=== PATIENT | male | born 2005 | race Caucasian/White ===

== ENCOUNTER 2024-06-30 15:23 | Emergency (ER) | payer OTHER, SELFPAY ==
[2024-06-30 15:25] VITALS: BP 148/92
[2024-06-30 15:35] VITALS: BMI 32.8
--- NOTE | 2024-06-30 16:22 | ED.GENMED ---
History of Present Illness
General
Chief Complaint: Skin Surface Trauma
Source: patient
Exam Limitations: none
Time Seen by Provider: 06/30/24 15:36
Nursing documentation reviewed up to this point in time: agreed with
History of Present Illness
History of Present Illness:
18-year-old male
No medical problems presents for laceration to bridge of his nose from accidentally walking into a steel beam earlier today. He had no loss of consciousness. No epistaxis. He has no facial pain or tenderness or swelling. Patient has a laceration
that is closed if he is not moving his eyebrows but once he lifts his eyebrows it opens up. It is not bleeding currently. Tetanus is unknown
Past History
Past History
ED Past Medical History: None
ED Past Surgical History: None
Social History
Tobacco: Non-smoker
Alcohol: None
Drug: None
Personal: Single
Living: with family
Employment: Employed
Review of Systems
Review of Systems
Allergies reviewed?: Yes
All Other Systems: Not applicable
Phy Exam
Physical Exam
Physical Exam:
GENERAL: Alert , in no apparent distress
HEAD: NCAT
face: top of nose between eyebrows laceraion linear 1.5 cm opens when he furrows brow
nontender
NECK: no midline tenderness, active ROM intact, no paraspinal muscle tenderness;
EYE: pupils equal and reactive, EOMs intact.
ENT: o/p clr, mmm. no hemotympanum
no nasal tenderness, no black eyes or sts
NEUROLOGICAL: Alert and oriented, no focal neuro deficits, CN intact, 5/5 strength, sensation intact
SKIN: Warm and dry, laceration
MUSCULOSKELETAL: No edema, well perfused.
PSYCH: Normal and appropriate interaction.
Course
Orders/Labs/Results
Orders:
Orders
06/30/24 16:21
Tetanus/Diphth/Acelpertussis [Adacel] 0.5 ml IM .ONCE ONE
Vital Signs
Initial and Last Documented VS:
Initial Vital Signs
Temp Pulse Resp BP Pulse Ox
36.7 C 70 16 148/92 99
06/30/24 15:25 06/30/24 15:25 06/30/24 15:25 06/30/24 15:25 06/30/24 15:25
Last Documented Vital Signs
Temp Pulse Resp BP Pulse Ox
36.7 C 70 16 148/92 96
06/30/24 15:25 06/30/24 15:25 06/30/24 15:25 06/30/24 15:25 06/30/24 15:36
Procedures
Laceration Closure
Nose:
Status of Wound: clean
Size of Wound in cm: 1.5
Description of Wound Edges: sharp
Preparation: cleaned with saline
Anesthesia: 1% Lidocaine with epi
Type of Closure: single layer closure
Skin Closure Material: 6-0 nylon
Number of sutures: 3
MDM/Problems Addressed
Differential Diagnosis Includes:
laceration, contusion
MDM/Problems Addressed:
laceration to nose from striking against steel beam
opens up with burrowing brow
no sts, no bony tenderness
wound reparied with sutures
tetanus given
*Critical Care Note
Total Time (30-74mins, 75-104mins- exclusive of procedures): Not Applicable
ED Attending Note
-
Portions of this chart may have been created with voice recognition software.� Occasional wrong word or��sound alike� substitutions may have occurred due to the inherent limitations of voice recognition software.
Discharge Plan
Departure
Patient Disposition: Home (Routine Discharge)
Date of Disposition: 06/30/24
Time of Disposition: 16:32
Patient with high blood pressure during this ER visit?: No
Condition: Fair
Covid-19: Not Applicable
Discharge Problem:
Laceration of face
Instructions: Laceration Repair With Stitches (DC)
Prescriptions:
No Action
ciprofloxacin HCl 1 DROPPERETT dropperette
1 dropperett otic (ear) Q12 Qty: 1 0RF
prednisone 10 MG tablet
10 mg PO .TAPER Qty: 30 0RF
Rx Instructions:
Take 40mg daily x3days, 30mg daily x3days,
20mg daily x3days, 10mg daily x3days.
Referrals:
NONE,* [Family Provider] -
Activity Restrictions/Additional Instructions:
KEEP THE WOUND CLEAN AND DRY FOR 24 HOURS
AFTER THAT YOU CAN GET IT WET IN THE BATH/SHOWER ONCE A DAY AND MAKE SURE IT IS CLEAN AND THERE IS NO DRIED BLOOD ON THE STITCHES
APPLY NEOSPORIN And you can cover if in the sun
THE STITCHES NEED TO BE REMOVED IN ABOUT 7 DAYS, SEE YOUR DOCTOR FOR THIS.
THE LAST DAY BEFORE STITCHES OUT, NO OINTMENT, LEAVE OPEN TO AIR
WATCH FOR SIGNS OF INFECTION AND RETURN NEEDED FOR PAIN, SWELLING, REDNESS, DRAINAGE, BLEEDING.
MOTRIN NEEDED FOR PAIN.
Interventions
Interventions:
*Risk Screen - Suicide Last Done: 06/30/24 15:25
*General Assessment Last Done: 06/30/24 15:25
*Neglect/Abuse Screening Last Done: 06/30/24 15:36
*ED- Fall Risk Assessment Last Done: 06/30/24 15:36
*ED COVID-19 Vaccine History Last Done: 06/30/24 15:25
*Nursing Disposition Last Done: 06/30/24 16:40
ED-Skin Assessment Last Done: 06/30/24 15:36
Discharge Date and Time
Discharge Date/Time: 06/30/24 16:41
Print Language: ICELANDIC
[2024-06-30] MEDS: ADACEL 0.5 ML IM (16:28)
== END 2024-06-30 16:41 | disposition home or self-care (01) ==
LOC: EMR 15:23
PROVIDERS: EMERGENCY PHYSICIAN Emergency Medicine
DX: S01.81XA Laceration without foreign body of other part of head, initial encounter (principal); W22.09XA Striking against other stationary object, initial encounter; Z23 Encounter for immunization
CPT/HCPCS: 99282; 12011; 90471; 90715

== ENCOUNTER 2024-07-10 16:22 | Emergency (ER) | payer OTHER, SELFPAY ==
[2024-07-10 16:27] VITALS: BP 130/85
--- NOTE | 2024-07-10 17:44 | ED.GENMED ---
History of Present Illness
General
Chief Complaint: Wound Check/Suture Removal
Source: patient and records
Exam Limitations: none
Time Seen by Provider: 07/10/24 17:36
History of Present Illness
History of Present Illness:
18yoM here for suture removal. Patient was seen in the ED on 06/30/2024 for a facial laceration. Three sutures were placed at that time. He otherwise denies any concerns and states his wound is healing well. Tdap updated during prior visit.
Past History
Past History
ED Past Medical History: None
ED Past Surgical History: None
Social History
Tobacco: Non-smoker
Alcohol: None
Drug: None
Personal: Single
Living: with family
Employment: Employed
Phy Exam
General Physical Exam
General Presentation: well appearing and no apparent distress
General age: appears stated age
General Skin: warm and dry
General Habitus: normal
General Mental: alert
ENT Exam
ENT Exam: normocephalic and other (3 intact sutures in between eyebrows. Laceration well healed without signs of infection.)
Neurological Exam
Neurological Exam: alert
Skin Exam
Skin Exam: normal color and warm/dry
Psychiatric Exam
Psychiatric Exam: normal mood/affect
Course
Vital Signs
Initial and Last Documented VS:
Initial Vital Signs
Temp Pulse Resp Pulse Ox
98.7 F 63 18 98
07/10/24 16:25 07/10/24 16:25 07/10/24 16:25 07/10/24 16:25
Last Documented Vital Signs
Temp Pulse Resp BP Pulse Ox
98.7 F 63 18 130/85 98
07/10/24 16:25 07/10/24 16:25 07/10/24 16:25 07/10/24 16:27 07/10/24 16:25
MDM/Problems Addressed
Differential Diagnosis Includes:
18yoM here for suture removal. No signs of infection on exam and wound is well healed. Sutures removed with suture removal kit without difficulty. Small amount of bleed afterwards which resolved with direct pressure. Patient discharged in stable
condition.
*Critical Care Note
Total Time (30-74mins, 75-104mins- exclusive of procedures): Not Applicable
ED Attending Note
-
Portions of this chart may have been created with voice recognition software.� Occasional wrong word or��sound alike� substitutions may have occurred due to the inherent limitations of voice recognition software.
Discharge Plan
Departure
Patient Disposition: Home (Routine Discharge)
Date of Disposition: 07/10/24
Time of Disposition: 17:45
Patient with high blood pressure during this ER visit?: No
Discharge Problem:
Encounter for removal of sutures
Instructions: Stitches Removal
Prescriptions:
No Action
ciprofloxacin HCl 1 DROPPERETT dropperette
1 dropperett otic (ear) Q12 Qty: 1 0RF
prednisone 10 MG tablet
10 mg PO .TAPER Qty: 30 0RF
Rx Instructions:
Take 40mg daily x3days, 30mg daily x3days,
20mg daily x3days, 10mg daily x3days.
Interventions
Interventions:
*Risk Screen - Suicide Last Done: 07/10/24 16:27
*General Assessment Last Done: 07/10/24 16:27
*Neglect/Abuse Screening Last Done: 07/10/24 16:27
*ED COVID-19 Vaccine History Last Done: 07/10/24 16:27
ED-Skin Assessment Last Done: 07/10/24 17:49
Discharge Date and Time
Print Language: CANADIAN
== END 2024-07-10 18:05 | disposition home or self-care (01) ==
LOC: EMR 16:22
PROVIDERS: EMERGENCY PHYSICIAN Emergency Medicine
DX: S01.21XD Laceration without foreign body of nose, subsequent encounter (principal); X58.XXXA Exposure to other specified factors, initial encounter
CPT/HCPCS: 99281

== ENCOUNTER 2024-08-29 23:01 | Emergency (ER) | payer OTHER, SELFPAY ==
[2024-08-29 23:02] VITALS: BP 148/97
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
== END 2024-08-30 02:28 | disposition home or self-care (01) ==
LOC: EMR 23:01
PROVIDERS: EMERGENCY PHYSICIAN Student in an Organized Health Care Education/Training Program
DX: S83.91XA Sprain of unspecified site of right knee, initial encounter (principal); M25.461 Effusion, right knee; W16.712A Jumping or diving from boat striking water surface causing other injury, initial encounter; Y93.89 Activity, other specified; Y92.89 Other specified places as the place of occurrence of the external cause; Y99.1 Military activity; R03.0 Elevated blood-pressure reading, without diagnosis of hypertension
CPT/HCPCS: 99283; 29505; 73564